=== PATIENT | male | born 1955 | race Caucasian/White ===

== ENCOUNTER 2017-12-03 19:34 | Observation (INO) | payer BC ==
[~2017-12-03] VITALS: Ht 172.7 cm; Wt 69.0 kg
[2017-12-03] MEDS ORDERED: XARELTO20 MG PO (19:42)
[2017-12-03] MEDS ORDERED: METOPROLOL TART50 MG PO (19:42)
[2017-12-03 20:00] LABS: BASOPHILS 0.2 % (0-2); EOSINOPHILS 2.3 % (0-7); IMMATURE GRANULOCYTES 0.1 % (0-5); LYMPHOCYTES 32.3 % (15-50); MCH 32.5 pg (26.0-34.0); MCHC 34.8 g/dL (31.0-37.0); MCV 93.3 fL (80.0-100.0); MEAN PLATELET VOLUME 10.3 fL (7.4-10.4); MONOCYTES 11.9 % (2-11); NEUTROPHILS 53.2 % (40-80); PLATELET COUNT 224 10x3/uL (130-400); RBC 4.93 10x6/uL (4.20-6.10); RDW 14.6 % (11.5-14.5); WBC 8.2 10x3/uL (4.8-10.8)
[2017-12-03 20:22] LABS: ALBUMIN 3.9 g/dL (3.4-5.0); ALKALINE PHOSPHATASE 77 U/L (46-116); ALT (SGPT) 26 U/L (10-68); BILIRUBIN - TOTAL 0.39 mg/dL (0.2-1.3); CALC OSMOLALITY 286 mosm/kg (275-300); CALCIUM 9.4 mg/dL (8.5-10.1); CHLORIDE - SERUM 105 mmol/L (98-107); CREATINE KINASE 91 UL (21-232); CREATININE - SERUM 0.9 mg/dL (0.6-1.3); GLUCOSE 197 mg/dL (74-106); POTASSIUM - SERUM 3.7 mmol/L (3.5-5.1); PROTEIN - SERUM 7.6 g/dL (6.4-8.2); SODIUM 142 mmol/L (136-145); UREA NITROGEN 9 mg/dL (7-18); eGFR NON AFRICAN AMERICAN > 90 mL/min (90-120)
[2017-12-03 20:23] LABS: APTT 45.9 SECONDS (22.8-39.4)
[2017-12-03 20:24] LABS: D-DIMER-QUANTITATIVE 0.99 ug/mLFEU (0.20-0.54); TROPONIN-I < 0.017 ng/mL (0.000-0.060)
[2017-12-03 20:30] VITALS: BP 137/84
[2017-12-03 20:48] LABS: CKMB 0.6 U/L (0.0-3.6)
[2017-12-03 21:30] VITALS: BP 123/79
[2017-12-03 22:30] VITALS: BP 125/83
[2017-12-03 23:30] VITALS: BP 121/68
[2017-12-04] VITALS (7 sets, daily range): BP systolic 113–136; BP diastolic 55–80; Ht 172.7 cm; Wt 69.0 kg
[2017-12-04 00:27] LABS: CKMB 0.8 U/L (0.0-3.6); CREATINE KINASE 74 UL (21-232)
[2017-12-04 00:36] LABS: TROPONIN-I < 0.017 ng/mL (0.000-0.060)
[2017-12-04] MEDS ORDERED: TOPROL XL50 MG PO (04:43)
[2017-12-04 05:57] LABS: BASOPHILS 0.4 % (0-2); EOSINOPHILS 2.6 % (0-7); HEMATOCRIT 43.4 % (42.0-54.0); HEMOGLOBIN 14.8 g/dL (13.5-17.5); IMMATURE GRANULOCYTES 0.1 % (0-5); LYMPHOCYTES 31.1 % (15-50); MCH 31.6 pg (26.0-34.0); MCHC 34.1 g/dL (31.0-37.0); MCV 92.5 fL (80.0-100.0); MEAN PLATELET VOLUME 10.5 fL (7.4-10.4); NEUTROPHILS 53.8 % (40-80); PLATELET COUNT 195 10x3/uL (130-400); RBC 4.69 10x6/uL (4.20-6.10); RDW 14.4 % (11.5-14.5)
[2017-12-04 06:18] LABS: ALBUMIN 3.4 g/dL (3.4-5.0); ALKALINE PHOSPHATASE 47 U/L (46-116); CALCIUM 9.2 mg/dL (8.5-10.1); CARBON DIOXIDE 27.1 mmol/L (21.0-32.0); CHLORIDE - SERUM 108 mmol/L (98-107); CREATININE - SERUM 0.8 mg/dL (0.6-1.3); POTASSIUM - SERUM 3.7 mmol/L (3.5-5.1); PROTEIN - SERUM 6.7 g/dL (6.4-8.2); SODIUM 143 mmol/L (136-145); UREA NITROGEN 10 mg/dL (7-18); eGFR NON AFRICAN AMERICAN > 90 mL/min (90-120)
[2017-12-04 06:19] LABS: ALT (SGPT) 19 U/L (10-68); CALC OSMOLALITY 283 mosm/kg (275-300); GLUCOSE 101 mg/dL (74-106)
[2017-12-04 07:49] LABS: CKMB 0.7 U/L (0.0-3.6); CREATINE KINASE 79 UL (21-232); TROPONIN-I < 0.017 ng/mL (0.000-0.060)
[2017-12-04 11:05] LABS: CKMB 0.8 U/L (0.0-3.6); CREATINE KINASE 67 UL (21-232); TROPONIN-I < 0.017 ng/mL (0.000-0.060)
== END 2017-12-04 17:46 | disposition home or self-care (01) ==
LOC: D.ER 19:34 → OBSVTIME 22:25 → D.M2 22:25
PROVIDERS: Family Medicine
DX: I48.0 Paroxysmal atrial fibrillation (principal); Z95.1 Presence of aortocoronary bypass graft; F17.200 Nicotine dependence, unspecified, uncomplicated